=== PATIENT | male | born 2000 | race Asian ===

== ENCOUNTER 2021-09-20 22:09 | Observation (INO) ==
[2021-09-20] MEDS ORDERED: MoRPHine SULFATE 4 MG/ML 1 ML CARP\\VIAL IV PRN (22:30)
[2021-09-20] MEDS ORDERED: ONDANSETRON INJ 2 MG/ML 2 ML VIAL IV STA (22:30)
--- NOTE | 2021-09-20 22:34 | Emergency Department Note ---
History of Present Illness General Chief complaint: Fever Stated complaint: ABDOMINAL PAIN, FEVER 100.4 Time Seen by Provider: 09/20/21 22:21 History of Present Illness Maximum Pain Intensity: 4 This is a 20-year-old male presenting to the emergency department for evaluation of very low abdominal pain. The patient was seen and evaluated in this ER about 36 hours ago where he had blood work and ultrasounds of his abdomen and for the appendix without significant findings. The patient was given Phenergan which seems to be controlling his nausea. He states that over the past 12 hours his pain has shifted to be more in the bilateral lower abdomen. He states that he had a fever of 100.3 F, and now returns to the ER for evaluation. Patient last ate a small amount of food around 5 PM. He feels like he is using the bathroom is normal. No history of abdominal surgery. He rates his current discomfort a 4/10. Home Medications Medication Instructions Recorded Confirmed Type promethazine 25 mg tablet 25 mg PO Q6H PRN nausea and 09/19/21 Rx vomiting #10 tabs Past Med/Surg History Medical History No pertinent past medical history Surgical History No pertinent past surgical history Family History Other No pertinent family history Social History Smoking Status: Never smoker Preferred Language: Welsh Hearing Ability: Normal marital status: Single current occupational status: student Feels Safe at Home: Yes Review of Systems A total of 10 systems reviewed and were otherwise negative Physical Exam Vital Signs Vital Signs - 24 hr 09/20/21 22:14 09/21/21 00:23 09/21/21 01:43 Temperature 37.0 C Temperature Source Temporal Artery Scan Pulse Rate 129 H Pulse Rate [Right] 94 H 60 Pulse Rhythm [Right] Respiratory Rate 18 16 16 Respiratory Effort / Characteristics Non-Labored Spontaneous Non-Labored Spontaneous Respiratory Depth Normal Normal Blood Pressure 131/84 Blood Pressure [Right Arm] 122/83 105/65 Blood Pressure Mean 99 Blood Pressure Mean [Right Arm] 96 78 Blood Pressure Position Sitting Pulse Oximetry 94 96 93 Oxygen Delivery Method Room Air Room Air Room Air Sepsis Recent Fever Within 48 Hours Yes Sepsis New/Unexplained Change in Mental Status N/A Sepsis Action Taken by Nursing No Action Required 09/21/21 02:00 Temperature Temperature Source Pulse Rate Pulse Rate [Right] 108 H Pulse Rhythm [Right] Regular Respiratory Rate 16 Respiratory Effort / Characteristics Respiratory Depth Blood Pressure Blood Pressure [Right Arm] 136/80 Blood Pressure Mean Blood Pressure Mean [Right Arm] 98 Blood Pressure Position Pulse Oximetry 97 Oxygen Delivery Method Room Air Sepsis Recent Fever Within 48 Hours Sepsis New/Unexplained Change in Mental Status Sepsis Action Taken by Nursing VITALS: Vitals are noted on the nurse's note and reviewed by myself. Vital signs stable. GENERAL: Well-developed, well-nourished, male, who is in no acute distress and resting comfortably. Patient is cooperative with the examination. HEAD: Normocephalic atraumatic. HEART: Regular rate and rhythm without murmurs gallops or rubs. LUNGS: Clear to auscultation bilaterally without wheezes, rales or rhonchi. No retractions or accessory muscle use. ABDOMEN: Positive normal bowel sounds x 4. Soft with mild bilateral lower abdominal tenderness. No distinct rebound or guarding. No CVA tenderness. MUSCULOSKELETAL: No muscle atrophy, erythema, or edema noted. Full range of motion in all extremities. NEURO: Patient was alert and oriented to person place and time. CN II through XII grossly intact. Course Administered Medications Morphine Sulfate (Morphine Sulfate 4 Mg/Ml 1 Ml Carp\Vial) 4 mg IV Q30M PRN PRN Reason: Pain Stop: 10/04/21 22:29 Last Admin: 09/20/21 22:39 Dose: 4 mg Documented By: FREYA Discontinued Medications Sodium Chloride (Nss 1000ml) 1,000 mls @ 999 mls/hr IV .Q1H1M ANNIE Stop: 09/20/21 23:45 Last Infusion: 09/20/21 23:50 Dose: 0 mls/hr Documented By: Admin: 09/20/21 22:40 Dose: 999 mls/hr Documented By: FREYA Cefoxitin Sodium (Mefoxin) 2,000 mg in 60 mls @ 100 mls/hr IV NOW STA Stop: 09/21/21 02:19 Last Admin: 09/21/21 01:48 Dose: 100 mls/hr Documented By: FREYA Ioversol (Optiray 320 100ml) 100 ml IV ONCE ONE Stop: 09/21/21 01:02 Last Admin: 09/21/21 01:02 Dose: 93 ml Documented By: DELBERT Ondansetron HCl (Ondansetron Inj 2 Mg/Ml 2 Ml Vial) 4 mg IV NOW STA Stop: 09/20/21 22:31 Last Admin: 09/20/21 22:39 Dose: 4 mg Documented By: FREYA Medical Decision Making Differential Diagnosis Differential diagnosis: Etiologies such as biliary colic, cholecystitis, hepatitis, pancreatitis, cardiac disease, pancreatitis, gastritis, peptic ulcer disease, appendicitis, cystitis, diverticulitis, mesenteric ischemia, inflammatory bowel disease, ileus, bowel obstruction, testicular/adnexal torsion, aortic pathology, ames gles, as well as others were considered Laboratory Data Result diagrams: 09/20/21 22:40 09/20/21 22:40 Lab Results 09/20/21 09/20/21 09/20/21 Range/Units 22:40 22:40 22:40 WBC 10.81 H (4.8-10.8) K/ul RBC 5.06 (4.63-6.08) M/uL Hgb 14.7 (14.0-18.0) g/dl Hct 43.6 (40.1-51.0) % MCV 86.2 (80.0-100.0) fL MCH 29.1 (25.0-34.0) pg MCHC 33.7 (32.0-36.0) g/dL RDW Std Deviation 38.5 (36.4-46.3) fL RDW Coeff of Amarilys 12.2 (11.5-14.5) % Plt Count 219 (130-400) K/uL MPV 9.2 L (9.4-12.4) fL Immature Gran % (Auto) 0.4 % Neut % (Auto) 84.1 % Lymph % (Auto) 6.5 % [place] % (Auto) 8.8 % Eos % (Auto) 0.1 % Baso % (Auto) 0.1 % Neut # (Auto) 9.10 H (1.4-6.5) K/uL Lymph # (Auto) 0.70 L (1.2-3.4) K/uL [place] # (Auto) 0.95 H (0.24-0.82) K/uL Eos # (Auto) 0.01 (0-0.50) K/uL Baso # (Auto) 0.01 (0-0.2) K/uL Immature Gran # (Auto) 0.04 H (0.00-0.02) K/uL Sodium 133 L (136-145) mmol/L Potassium 3.7 (3.5-5.1) mmol/L Chloride 99 (98-107) mmol/L Carbon Dioxide 25 (21-32) mmol/L Anion Gap 9 (3-11) BUN 11 (6-23) mg/dl Creatinine 0.91 (0.6-1.4) mg/dl Est Cr Clr Drug Dosing 127.3 ml/min Est GFR ( Amer) 138.2 ml/min Est GFR (Non-Af Amer) 119.2 ml/min BUN/Creatinine Ratio 12.1 (10-20) Glucose 112 H (70-99(Fasting)) mg/dl Lactate (0.4-2.0) mmol/L Calcium 9.2 (8.5-10.1) mg/dl Total Bilirubin 1.2 H (0.2-1.0) mg/dl AST 18 (13-39) U/L ALT 23 (7-52) U/L Alkaline Phosphatase 58 (34-104) U/L Total Protein 7.8 (6.0-8.3) gm/dl Albumin 4.5 (3.4-5.0) gm/dl Globulin 3.3 (2.5-4.0) gm/dl Albumin/Globulin Ratio 1.4 (0.9-2) Lipase 19 (11-82) U/L Urine Color Urine Appearance (Clear) Urine pH (4.5-7.5) Ur Specific [place] (1.000-1.030) Urine Protein (Negative) Urine Glucose (UA) (Negative) Urine Ketones (Negative) Urine Blood (Negative) Urine Nitrite (Negative) Urine Bilirubin (Negative) Urine Urobilinogen (Negative) Ur Leukocyte Esterase (Negative) Urine WBC (Auto) (0-5) /hpf Urine RBC (Auto) (0-4) /hpf U Hyaline Cast (Auto) (0-5) /lpf U Epithel Cells (Auto) (0-5) /lpf Urine Bacteria (Auto) (Negative) SARS-CoV-2, RNA, NAAT NEGATIVE (NEGATIVE) 09/20/21 09/20/21 Range/Units 22:40 22:56 WBC (4.8-10.8) K/ul RBC (4.63-6.08) M/uL Hgb (14.0-18.0) g/dl Hct (40.1-51.0) % MCV (80.0-100.0) fL MCH (25.0-34.0) pg MCHC (32.0-36.0) g/dL RDW Std Deviation (36.4-46.3) fL RDW Coeff of Amarilys (11.5-14.5) % Plt Count (130-400) K/uL MPV (9.4-12.4) fL Immature Gran % (Auto) % Neut % (Auto) % Lymph % (Auto) % [place] % (Auto) % Eos % (Auto) % Baso % (Auto) % Neut # (Auto) (1.4-6.5) K/uL Lymph # (Auto) (1.2-3.4) K/uL [place] # (Auto) (0.24-0.82) K/uL Eos # (Auto) (0-0.50) K/uL Baso # (Auto) (0-0.2) K/uL Immature Gran # (Auto) (0.00-0.02) K/uL Sodium (136-145) mmol/L Potassium (3.5-5.1) mmol/L Chloride (98-107) mmol/L Carbon Dioxide (21-32) mmol/L Anion Gap (3-11) BUN (6-23) mg/dl Creatinine (0.6-1.4) mg/dl Est Cr Clr Drug Dosing ml/min Est GFR ( Amer) ml/min Est GFR (Non-Af Amer) ml/min BUN/Creatinine Ratio (10-20) Glucose (70-99(Fasting)) mg/dl Lactate 1.2 (0.4-2.0) mmol/L Calcium (8.5-10.1) mg/dl Total Bilirubin (0.2-1.0) mg/dl AST (13-39) U/L ALT (7-52) U/L Alkaline Phosphatase (34-104) U/L Total Protein (6.0-8.3) gm/dl Albumin (3.4-5.0) gm/dl Globulin (2.5-4.0) gm/dl Albumin/Globulin Ratio (0.9-2) Lipase (11-82) U/L Urine Color Yellow Urine Appearance Clear (Clear) Urine pH 6.5 (4.5-7.5) Ur Specific [place] 1.019 (1.000-1.030) Urine Protein Trace H (Negative) Urine Glucose (UA) Negative (Negative) Urine Ketones 1+ H (Negative) Urine Blood Trace H (Negative) Urine Nitrite Negative (Negative) Urine Bilirubin Negative (Negative) Urine Urobilinogen Negative (Negative) Ur Leukocyte Esterase Negative (Negative) Urine WBC (Auto) 1-5 (0-5) /hpf Urine RBC (Auto) 0-4 (0-4) /hpf U Hyaline Cast (Auto) 1-5 (0-5) /lpf U Epithel Cells (Auto) 5-10 H (0-5) /lpf Urine Bacteria (Auto) Negative (Negative) SARS-CoV-2, RNA, NAAT (NEGATIVE) Imaging Data Radiologist's Impression: Preliminary Findings Only See Final Report For Complete Findings CT ABDOMEN & PELVIS With Contrast: Acute appendicitis noted. What may reflect appendicoliths versus oral contrast noted in a dilated appendix measuring up to 16 mm in transverse plane. Residual gas noted in the inflamed appendix. There is reactive thickening of the adj acent sigmoid colon. Radiologist:Dwaine Robles MD [facility] Narrative Physical exam and history were performed. Nursing notes, EMR, and Medication List were personally reviewed. Patient appears to have abdominal pain with fever returning him to the ER. The patient's symptoms are now in the lower abdomen more so than diffuse. IV access was established and labs were obtained. He was hydrated with normal saline and given IV morphine and IV Zofran for comfort. Patient was prepped for contrast CT. Patient's blood work is as above and was reviewed. His white blood cell count improved from 12 to 10.8. He does not have significant anemia, bandemia, or gross electrolyte imbalance. Lipase and transaminases are not diagnostic. Urine is without significant acute findings. COVID is negative. CT scan is as above and was reviewed by myself and radiology. Patient does appear to have acute appendicitis on imaging. Patient was kept n.p.o. and given Mefoxin. He was updated on his status. I did reach out to the on-call surgical team, and spoke with Dr. Mayorga, who will evaluate the patient. Please see Dr. Mayorga dictation for further patient course, plan, disposition. The chart was completed utilizing [employer] Speech Voice Recognition Software. Grammatical errors, random word insertions, pronoun errors, and incomplete sentences are an occasional consequence of this system due to software limitations, ambient noise, and hardware issues. Any formal questions or concerns about the content, text, or information contained within the body of this dictation should be directly addressed to the provider for clarification. . Impression & Plan Acute appendicitis Discharge Plan Visit Data Chief Complaint: Fever Stated Complaint: ABDOMINAL PAIN, FEVER 100.4 ED Provider: Yevgeniy Damico ED Midlevel Provider: Kirill López Discharge Problem: Acute appendicitis
[2021-09-20] MEDS ORDERED: SODIUM CHLORIDE 0.9% 1000ML 1,000 ML IV SCH (22:45)
[2021-09-20 23:03] LABS: Basophils # (auto) 0.01 K/uL (0-0.2); Basophils % (auto) 0.1 %; Eosinophils # (auto) 0.01 K/uL (0-0.50); Eosinophils % (auto) 0.1 %; Hematocrit (blood only) 43.6 % (40.1-51.0); Hemoglobin 14.7 g/dl (14.0-18.0); Immature Granulocytes # (auto) 0.04 K/uL (0.00-0.02); Immature Granulocytes % (auto) 0.4 %; Lymphocytes % (auto) 6.5 %; Mean Corpuscular Hemoglobin 29.1 pg (25.0-34.0); Mean Corpuscular Hgb Conc 33.7 g/dL (32.0-36.0); Mean Corpuscular Volume 86.2 fL (80.0-100.0); Mean Platelet Volume 9.2 fL (9.4-12.4); Monocytes # (auto) 0.95 K/uL (0.24-0.82); Monocytes % (auto) 8.8 %; Neutrophils % (auto) 84.1 %; Platelet Count 219 K/uL (130-400); RDW Coefficient of Variation 12.2 % (11.5-14.5); RDW Standard Deviation 38.5 fL (36.4-46.3); Red Blood Count 5.06 M/uL (4.63-6.08); White Blood Count 10.81 K/ul (4.8-10.8)
[2021-09-20 23:12] LABS: Appearance Urine Clear (Clear); Bacteria Urine Automated Negative (Negative); Bilirubin Urine Negative (Negative); Blood Urine Trace (Negative); Color Urine Yellow; Glucose Urine UA Negative (Negative); Ketones Urine 1+ (Negative); Leukocyte Esterase Urine Negative (Negative); Nitrite Urine Negative (Negative); Protein Urine Trace (Negative); RBC Urine Automated 0-4 /hpf (0-4); Specific Gravity Urine 1.019 (1.000-1.030); Urobilinogen Urine Negative (Negative); pH Urine 6.5 (4.5-7.5)
[2021-09-20 23:23] LABS: Albumin Globulin Ratio 1.4 (0.9-2); Albumin Level 4.5 gm/dl (3.4-5.0); BUN Creatinine Ratio 12.1 (10-20); Bilirubin,Total 1.2 mg/dl (0.2-1.0); Calcium 9.2 mg/dl (8.5-10.1); Creatinine Clr Calc Pharmacy 127.3 ml/min; Est GFR (African American) 138.2 ml/min; Est GFR (Non-African American) 119.2 ml/min; Globulin 3.3 gm/dl (2.5-4.0); Potassium 3.7 mmol/L (3.5-5.1); Total Protein 7.8 gm/dl (6.0-8.3)
[2021-09-21] MEDS ORDERED: OPTIRAY 320 100ml IV ONE (01:01)
[2021-09-21] MEDS ORDERED: cefOXitin 2,000 MG/60 ML BAG IV STA (01:44)
--- NOTE | 2021-09-21 02:22 | Communication Note ---
Date of Service: September 21, 2021 20 y/o male with uncomplicated acute appendicitis, lab and ct personally reviewed, will admit to obs, npo, iv abx, plan for lap appendectomy time and space available later today. orders placed.
[2021-09-21] MEDS ORDERED: ONDANSETRON INJ 2 MG/ML 2 ML VIAL IV PRN ×2 (03:27→10:18)
[2021-09-21] MEDS ORDERED: MoRPHine SULFATE 4 MG/ML 1 ML CARP\\VIAL IV PRN (03:27)
[2021-09-21] MEDS ORDERED: diphenhydrAMINE 50 MG/ML VIAL IV PRN (03:27)
[2021-09-21] MEDS ORDERED: MoRPHine SULFATE 2 MG/ML CARP IV PRN (03:27)
[2021-09-21] MEDS: LACTATED RINGER'S 1,000 ML IV SCH ×3 (03:41→14:57)
[2021-09-21] MEDS: ACETAMINOPHEN 1,000 MG/100 ML VIAL IV SCH ×3 (03:46→21:32)
--- NOTE | 2021-09-21 07:13 | History & Physical Report ---
Date of Service September 21, 2021 Assessment & Plan (1) Acute appendicitis: Plan: This is a 20y M with no significant PMH who presented to the [facility] ED on 09/20/21 with complaints of abdominal pain that started Tuesday.He was actually in the ER on Tuesday and a appendix US was obtained and did not visualize the appendix but there were no secondary findings suggestive of acute appendicitis. Today in the ED a CT a/p was performed that revealed findings concerning for acute appendicitis with a likely microperforation at the distal appendix, no periappendiceal abscess at this time. There is also a few proximal appendicolith's measuring up to 1 cm. WBC 10.8 (12.4). Vital signs are stable. Low grade temp this AM. On exam abdomen is soft with tenderness to palpation in the RLQ. He has been NPO with IVF and started on pre-op abx. Exam and clinical findings consistent with acute appendicitis. We will proceed with laparoscopic appendectomy in the OR today with Dr. Mayorga. Admission and Anticipated Discharge Date Admission Date: September 21, 2021 History of Present Illness Primary Care Provider: [facility] This is a 20y M with no significant PMH who presents to the [facility] ED on 09/20/21 with complaints of abdominal pain. He states the pain started in his stomach on Tuesday around 2:30pm. Then Tuesday into Tuesday it moved into his lower abdomen. He developed nausea/vomiting on Tuesday. The pain has been constant and he rates it a 7/10 at its worst. On my interview it's currently a 3/10. He developed fevers yesterday evening. He was actually in the ER on Tuesday and a appendix US was obtained and did not visualize the appendix but there were no secondary findings suggestive of acute appendicitis. He again reported to the ER last night due to ongoing symptoms. In the ED a CT a/p was performed that revealed findings concerning for acute appendicitis with a likely microperforation at the distal appendix, no periappendiceal abscess at this time. There is also a few proximal appendicolith's measuring up to 1 cm. Patient denies any chills, change in bowel habits, CP/SOB, bloating. No prior abdominal surgical history. Allergies Allergy/AdvReac Type Severity Reaction Status Date / Time No Known Allergies Allergy Unverified 09/21/21 03:27 Home Medications Medication Instructions Recorded Confirmed Type promethazine 25 mg tablet 25 mg PO Q6H PRN nausea and 09/19/21 Rx vomiting #10 tabs Past Med/Surg History Medical History No pertinent past medical history Surgical History No pertinent past surgical history Family History Other No pertinent family history Social History Smoking Status: Never smoker Hx Alcohol Use: Yes Alcohol type: beer Hx Substance Use: No Preferred Language: Mandarin Cymraes Communication Ability: Effective Hearing Ability: Normal [employer] Specialist Required: No Beliefs That Will Affect Care: None marital status: Single Current Living Situation: Other Current Living Situation Comment: lives with roommates current occupational status: student Other Information That Helps Us Care for You: No Feels Safe at Home: Yes Safety Concerns: Feels Safe At This Time Assistive Devices: Glasses Review of Systems Constitutional: + fever; no chills Respiratory: no dyspnea Cardiovascular: no chest pain Gastrointestinal: + abdominal pain and + nausea; no bloating and no change in bowel habits Physical Exam Physical Exam: awake/alert, no acute distress Respiratory: normal respiratory effort Gastrointestinal (Abdomen): Inspection/Auscultation: + abdomen distended (mild) Percussion/Palpation: + abdomen tender (ttp in lower abdomen R>L) and abdomen soft Results & Data Results & Data ([facility]) Vital Signs (Past 12 Hours) Vital Signs Temp Pulse Pulse Resp BP BP BP 09/21/21 06:02 37.2 C 100 H 17 120/69 09/21/21 03:20 37.8 C H 120 H 18 102/62 09/21/21 02:00 108 H 16 136/80 09/21/21 01:43 60 16 105/65 09/21/21 00:23 94 H 16 122/83 09/20/21 22:14 37.0 C 129 H 18 131/84 Pulse Ox O2 Del Method 09/21/21 06:02 97 Room Air 09/21/21 03:20 96 Room Air 09/21/21 02:00 97 Room Air 09/21/21 01:43 93 Room Air 09/21/21 00:23 96 Room Air 09/20/21 22:14 94 Room Air Diagnostic Findings ABDOMEN AND PELVIS CT WITH IV AND ORAL CONTRAST CT DOSE: 306.10 mGy.cm HISTORY: Low abd pain. Fever. TECHNIQUE: Multiaxial CT images of the abdomen and pelvis were performed following the use of intravenous and oral contrast. A dose lowering technique was utilized adhering to the principles of ALARA. COMPARISON STUDY: None. FINDINGS: The lung bases are clear. No fractures within the visualized osseous structures. The liver, gallbladder, pancreas, spleen adrenal glands and kidneys are unremarkable. No hydronephrosis. No retroperitoneal lymphadenopathy. Normal caliber abdominal aorta. The bladder is unremarkable. No evidence for bowel obstruction. The appendix is distended and thick-walled measuring up to 12 mm in diameter. The proximal appendix contains 2 appendicoliths measuring up to 1 cm. There is likely microperforation of the distal appendix with periappendiceal fat stranding. No definite abscess at this time. IMPRESSION: 1. Acute appendicitis. There is likely microperforation at the distal appendix. No periappendiceal abscess at this time. 2. There are few proximal appendicoliths measuring up to 1 cm. 3. Mild thickening of the adjacent sigmoid colon is likely reactive to the appendicitis. ACT 112: Negative or not required by law. Electronically signed by: Fernando Johnson M.D. 09/21/2021 7:36 AM Code Status & VTE Plan VTE Prophylaxis Plan VTE Prophylaxis will be ordered: Yes Supervising Physician Co-Signing Physician Notes Patient seen and examined, labs and imaging reviewed, agree with above. 20 y/o male with acute appendicitis, questionable microperforation on CT. AFVSS, abd soft, ttp in RLQ. wbc 10, CT personally reviewed, agree with appendicitis. No obvious perforation. Plan for laparoscopic appendectomy risks discussed to include bleeding, infection, conversion to open, need for future or more extensive surgery, abscess, damage to surrounding structures, and risks of anesthesia. on abx possible d/c this afternoon PG Care Time/CCT Total # of Minutes Spent Total Time Spent with Patient: Total time spent is greater than 50% in coordination of care (as documented) at patient's floor/unit and/or counseling patient: Coding Level of Care Code 84672 Initial Inpt Care Lvl 2 Diagnoses Acute appendicitis K35.80
--- NOTE | 2021-09-21 07:38 | CT Scan Report ---
ABDOMEN AND PELVIS CT WITH IV AND ORAL CONTRAST CT DOSE: 306.10 mGy.cm HISTORY: Low abd pain. Fever. TECHNIQUE: Multiaxial CT images of the abdomen and pelvis were performed following the use of intrave nous and oral contrast. A dose lowering technique was utilized adhering to the principles of ALARA. COMPARISON STUDY: None. FINDINGS: The lung bases are clear. No fractures within the visualized osseous structures. The liver, gallbladder, pancreas, spleen adrenal glands and kidneys are unremarkable. No hydronephrosis. No ret roperitoneal lymphadenopathy. Normal caliber abdominal aorta. The bladder is unremarkable. No evidenc e for bowel obstruction. The appendix is distended and thick-walled measuring up to 12 mm in diameter . The proximal appendix contains 2 appendicoliths measuring up to 1 cm. There is likely microperforat ion of the distal appendix with periappendiceal fat stranding. No definite abscess at this time. IMPRESSION: 1. Acute appendicitis. There is likely microperforation at the distal appendix. No periappendiceal ab scess at this time. 2. There are few proximal appendicoliths measuring up to 1 cm. 3. Mild thickening of the adjacent sigmoid colon is likely reactive to the appendicitis. ACT 112: Negative or not required by law. Electronically signed by: Fernando Johnson M.D. 09/21/2021 7:36 AM
[2021-09-21] MEDS: cefOXitin 2,000 MG in DEXTROSE 5% 50 ML IV SCH ×2 (10:04→17:04)
[2021-09-21] MEDS ORDERED: ATROPINE SULFATE 0.1 MG/ML 10ML SYR IV PRN (10:18)
[2021-09-21] MEDS ORDERED: fentaNYL citrate 100 MCG/2 ML VIAL IV PRN (10:18)
[2021-09-21] MEDS ORDERED: PHENYLEPHRINE 100MCG/ML 5ML SYR IV PRN (10:18)
[2021-09-21] MEDS ORDERED: MEPERIDINE HCL 25 MG/ML CARP/VIAL IV PRN (10:18)
[2021-09-21] MEDS ORDERED: HYDROmorphone INJ 1 MG/ML SYRINGE IV PRN (10:18)
[2021-09-21] MEDS ORDERED: LABETALOL HCL IV 5 MG/ML 20ML IV PRN (10:18)
[2021-09-21] MEDS ORDERED: ePHEDrine sulfate 50 MG/ML AMP IV PRN (10:18)
--- NOTE | 2021-09-21 10:18 | Anesthesiology Consultation ---
Date of Service September 21, 2021 Assessment & Plan (1) Encounter for pre-operative examination: Chart Review Chart Review: Acceptable Risk for Surgery and Patient NOT seen in Pre Admission Testing Consults Requested none History Surgery Operation Date: 09/21/21 07:00 Proposed Procedures p Laparoscopic Appendectomy - Rajesh Mayorga DO, FACS Height/Weight Height: 5 ft 9 in Weight: 79.379 kg Allergies Allergy/AdvReac Type Severity Reaction Status Date / Time No Known Allergies Allergy Unverified 09/21/21 03:27 Medications Home Medications Medication Instructions Recorded Confirmed Last Taken promethazine 25 mg tablet 25 mg PO Q6H PRN nausea and 09/19/21 Unknown vomiting #10 tabs Active Medications Generic Name Dose Route Start Last Admin Trade Name Freq PRN Reason Stop Dose Admin Lactated Ringer's 1,000 mls @ 125 mls/hr 09/21/21 03:27 09/21/21 10:05 Lr IV 10/21/21 03:26 0 mls/hr .Q8H ANNIE Infusion Acetaminophen 1,000 mg in 100 mls @ 400 mls/hr 09/21/21 04:00 09/21/21 04:02 Ofirmev IV 09/24/21 03:59 Infused Q8 ANNIE Infusion Protocol Cefoxitin Sodium 2,000 mg/ 60 mls @ 100 mls/hr 09/21/21 10:00 09/21/21 10:04 Dextrose IV 10/01/21 09:59 100 mls/hr Q8H ANNIE Administration NPO Date Last Intake of Fluids: 09/20/21 Time Last Intake of Fluids: 22:20 Date Last Intake of Solids: 09/20/21 Time Last Intake of Solids: 17:30 Past Medical History Medical History No pertinent past medical history Past Family History Family History Other No pertinent family history Past Surgical History Surgical History No pertinent past surgical history Social History Smoking Status: Never smoker Hx Alcohol Use: Yes Alcohol type: beer alcohol intake frequency: 0-2 drinks per day Hx Substance Use: No substance use type: does not use Physical Exam Vital Signs Last Vital Signs Temp 36.8 C 09/21/21 08:03 Pulse 93 H 09/21/21 08:03 Resp 16 09/21/21 08:03 BP 115/72 09/21/21 08:03 Pulse Ox 97 09/21/21 08:03 O2 Del Method 09/21/21 08:03 Testing Laboratory Results 09/20/21 22:40 09/20/21 22:40 Urine Color Yellow 09/20/21 22:40 Urine Appearance Clear (Clear) 09/20/21 22:40 Urine pH 6.5 (4.5-7.5) 09/20/21 22:40 Ur Specific [place] 1.019 (1.000-1.030) 09/20/21 22:40 Urine Protein Trace (Negative) H 09/20/21 22:40 Urine Glucose (UA) Negative (Negative) 09/20/21 22:40 Urine Ketones 1+ (Negative) H 09/20/21 22:40 Urine Nitrite Negative (Negative) 09/20/21 22:40 Ur Leukocyte Esterase Negative (Negative) 09/20/21 22:40 Urine WBC (Auto) 1-5 /hpf (0-5) 09/20/21 22:40 Urine RBC (Auto) 0-4 /hpf (0-4) 09/20/21 22:40 U Hyaline Cast (Auto) 1-5 /lpf (0-5) 09/20/21 22:40 U Epithel Cells (Auto) 5-10 /lpf (0-5) H 09/20/21 22:40 Urine Bacteria (Auto) Negative (Negative) 09/20/21 22:40
[2021-09-21] MEDS ORDERED: PROPOFOL IV EMULSION 10 MG/ML 20 ML VIAL IV ONE (11:59)
[2021-09-21] MEDS ORDERED: MIDAZOLAM HCL 1 MG/ML 2ML VIAL ONE (11:59)
[2021-09-21] MEDS ORDERED: ROCURONIUM BROMIDE 10 MG/ML 5 ML VIAL IV ONE (11:59)
[2021-09-21] MEDS ORDERED: fentaNYL citrate 100 MCG/2 ML VIAL ONE ×2 (11:59→12:39)
[2021-09-21] MEDS ORDERED: BUPIVACAINE 0.5 % 5 MG/1 ML MPF 30ML VIAL ONE (12:03)
[2021-09-21] MEDS ORDERED: LIDOCAINE 2% 20 MG/ML 5 ML SYR IV ONE (12:21)
[2021-09-21] MEDS ORDERED: DEXAMETHASONE SOD INJ 4 MG/ML VIAL ONE (12:26)
[2021-09-21] MEDS ORDERED: ONDANSETRON INJ 2 MG/ML 2 ML VIAL ONE (12:26)
[2021-09-21] MEDS ORDERED: ESMOLOL HCL INJ 10 MG/ML 10ML VIAL IV ONE (12:38)
[2021-09-21] MEDS ORDERED: GLYCOPYRROLATE 0.2 MG/ML VIAL ONE (13:04)
[2021-09-21] MEDS ORDERED: NEOSTIGMINE METHYLSULFATE 1 MG/ML 10ML VIAL ONE (13:04)
--- NOTE | 2021-09-21 13:12 | Operative Report ---
PG Post Operative Report Pre & Post Diagnosis Operation Date: 09/21/21 07:00 Pre-Op Diagnosis: ACUTE APPENDICITIS Post-Op Diagnosis: ACUTE APPENDICITIS I identified the patient and participated in the time-out.: Yes Procedure Operation Date: 09/21/21 07:00 Actual Procedures p Laparoscopic Appendectomy(Not Applicable) - Rajesh Mayorga DO, FACS Surgeon Rajesh Mayorga DO, FACS Nipping Machine Operator luis Cruz Estimated Blood Loss 5 Findings Consistent with Post-Op Diagnosis Acute gangrenous appendicitis, no evidence of perforation. Specimens Appendix Anesthesia Type General Complications none Disposition Accompanied Patient To Recovery: No Disposition: Recovery Room Indications 20-year-old male presented with signs and symptoms of appendicitis confirmed by CT scan. Plan for laparoscopic appendectomy. The risks of the procedure were discussed, all questions were answered, and the patient agreed to proceed with surgery as planned. Description of Procedure The patient was properly identified, consented, and taken to the operating room where he was placed in the supine position. General endotracheal anesthesia was induced. SCDs and a safety belt were placed. Preoperative antibiotics were administered. A Campbell catheter was not placed. The patient's abdomen was prepped and draped in the standard sterile fashion. Surgical timeout was performed and all parties were in agreement that this was the correct patient and procedure to be performed and we continued as planned. A curvilinear infraumbilical incision was made with electrocautery and deepened down to the fascia with blunt dissection. The base of the umbilicus was grasped with a Maggie and elevated towards the ceiling. An incision was made in the midline fascia with a knife and entry into the peritoneum was confirmed. Stay suture of 0 Vicryl was placed and a Grossman trocar was inserted. The abdomen was insufflated with carbon dioxide which the patient tolerated without incident. The laparoscope was inserted and no damage from initial trocar placement was noted, no gross abnormalities were noted within the 4 quadrants the abdomen. 5 mm ports were then placed in the left lower quadrant with care not to damage the epigastric vessels, and in the suprapubic midline with care not to damage the bladder. The patient was placed in Trendelenburg position and rotated towards the left. The small bowel was swept away from the right lower quadrant. The cecum was grasped with an atraumatic grasper exposing the appendix. There was some fibrinous adhesions in the right lower quadrant which were freed with blunt dissection. The appendix was mobilized and was significantly inflamed and there was no evidence of perforation, but it did appear to be gangrenous. There was reactive and turbid fluid in the pelvis. A window was created between the base of the appendix and the mesoappendix. A echevarria loaded endoscopic stapler was then used to divide the appendix at its base. The harmonic scalpel was then used to divide the mesoappendix. Hemostasis was good. The appendix was placed in an Endo Catch bag and removed through the umbilical port site. The right lower quadrant and pelvis was irrigated and hemostasis was found to be good. 5 mm trochars were removed under direct visualization and the abdomen was allowed to collapse. The umbilical port site fascia was closed with 0 Vicryl suture. The wound was irrigated, and the skin of all ports was closed with 4-0 Monocryl subcuticular sutures. Dermabond was placed over the wounds. The patient was extubated in the operating room and taken to the PACU where he recovered without apparent incident. All sponge, instrument and needle counts were correct at the conclusion of the procedure. The patient tolerated the procedure well. The physician's general office assistant was present and scrubbed for the entirety of the case. She was critical positioning the patient, prepping and draping, retraction and exposure, driving the laparoscope, Lausier the incisions, placement of the dressings. I attest to the content of the Intraoperative Record and any orders documented therein. Any exceptions are noted below.
--- NOTE | 2021-09-21 14:04 | Anesthesiology Progress Note ---
Date of Service September 21, 2021 Anesthesia Post Procedure Vital Signs Vital Signs: Temp Pulse Pulse Pulse Resp BP BP 09/21/21 13:55 80 11 L 126/82 09/21/21 13:45 81 19 124/85 09/21/21 13:35 36.5 C 71 13 126/83 09/21/21 13:26 36.5 C 83 15 129/90 09/21/21 10:50 37.2 C 122 H 18 114/90 09/21/21 08:03 36.8 C 93 H 16 115/72 09/21/21 06:02 37.2 C 100 H 17 120/69 09/21/21 03:20 37.8 C H 120 H 18 102/62 09/21/21 02:00 108 H 16 09/21/21 01:43 60 16 09/21/21 00:23 94 H 16 09/20/21 22:14 37.0 C 129 H 18 131/84 BP Pulse Ox O2 Del Method O2 Flow Rate 09/21/21 13:55 92 Room Air 09/21/21 13:45 99 Oxymask 2 09/21/21 13:35 100 Oxymask 3 09/21/21 13:26 100 Oxymask 5 09/21/21 10:50 99 Room Air 09/21/21 08:03 97 Room Air 09/21/21 06:02 97 Room Air 09/21/21 03:20 96 Room Air 09/21/21 02:00 136/80 97 Room Air 09/21/21 01:43 105/65 93 Room Air 09/21/21 00:23 122/83 96 Room Air 09/20/21 22:14 94 Room Air Pain Intensity Abdomen: Pain Intensity: 3 Transfer of Care Handoff Completed per policy Notes Mental Status: alert / awake / arousable Patient Amnestic to Procedure: Yes Nausea / Vomiting: adequately controlled Pain: adequately controlled Airway Patency, RR, SpO2: stable & adequate BP & HR: stable & adequate Hydration State: stable & adequate Anesthetic Complications: no major complications apparent and Pt Satisfied with anesthetic care
[2021-09-21] MEDS ORDERED: oxyCODONE HCL IR 5 MG TAB (IMMEDIATE RELEASE) PO PRN ×4 (14:30→14:43)
[2021-09-22] MEDS: cefOXitin 2,000 MG in DEXTROSE 5% 50 ML IV SCH ×2 (02:18→10:45)
[2021-09-22] MEDS: LACTATED RINGER'S 1,000 ML IV SCH (02:21)
[2021-09-22] MEDS: ACETAMINOPHEN 1,000 MG/100 ML VIAL IV SCH (05:23)
[2021-09-22 06:57] LABS: Basophils # (auto) 0.01 K/uL (0-0.2); Basophils % (auto) 0.1 %; Eosinophils # (auto) 0.01 K/uL (0-0.50); Eosinophils % (auto) 0.1 %; Hematocrit (blood only) 40.9 % (40.1-51.0); Hemoglobin 13.7 g/dl (14.0-18.0); Immature Granulocytes # (auto) 0.04 K/uL (0.00-0.02); Immature Granulocytes % (auto) 0.4 %; Lymphocytes # (auto) 1.18 K/uL (1.2-3.4); Mean Corpuscular Hemoglobin 28.8 pg (25.0-34.0); Mean Corpuscular Hgb Conc 33.5 g/dL (32.0-36.0); Mean Corpuscular Volume 86.1 fL (80.0-100.0); Monocytes # (auto) 1.11 K/uL (0.24-0.82); Monocytes % (auto) 12.2 %; Neutrophils # (auto) 6.72 K/uL (1.4-6.5); Neutrophils % (auto) 74.2 %; Platelet Count 213 K/uL (130-400); RDW Coefficient of Variation 11.9 % (11.5-14.5); RDW Standard Deviation 37.8 fL (36.4-46.3); Red Blood Count 4.75 M/uL (4.63-6.08); White Blood Count 9.07 K/ul (4.8-10.8)
[2021-09-22 07:18] LABS: Anion Gap 7 (3-11); BUN Creatinine Ratio 14.1 (10-20); Blood Urea Nitrogen 10 mg/dl (6-23); Carbon Dioxide 27 mmol/L (21-32); Chloride 103 mmol/L (98-107); Creatinine Clr Calc Pharmacy 163.2 ml/min; Est GFR (African American) > 150.0 ml/min; Est GFR (Non-African American) 133.2 ml/min; Glucose 106 mg/dl (70-99(Fasting)); Sodium 137 mmol/L (136-145)
--- NOTE | 2021-09-22 09:32 | Surgery Progress Note ---
Date of Service September 22, 2021 Assessment & Plan (1) Acute appendicitis: Plan: POD#1 laparoscopic appendectomy for gangrenous appendicitis WBC 9. Vitals stable. Pt afebrile He is feeling well. Tolerating diet. Pain controlled. Incisions c/d/i Plan on discharging to home today Will send out on on some po abx given intraop findings Dispo instructions reviewed. F/u in clinic with Dr. Mayorga in 1-2 weeks Admission and Anticipated Discharge Date Admission Date: September 21, 2021 Subjective Patient is doing well. Tolerating a regular diet. Pain controlled with Tylenol. Denies nausea/vomiting. Physical Exam Physical Exam: awake/alert, no distress Gastrointestinal (Abdomen): Inspection/Auscultation: + abdominal surgical incision (c/d/i no signs of infection. skin glue over incisions ); abdomen not distended Percussion/Palpation: abdomen soft; abdomen nontender Results & Data ([facility]) Vital Signs (Past 12 Hours) Vital Signs Temp Pulse Resp BP Pulse Ox O2 Del Method 09/22/21 07:33 36.6 C 75 16 109/70 09/22/21 02:20 36.8 C 60 14 119/75 97 Room Air 09/21/21 22:02 37.0 C 78 16 106/68 97 Room Air PG Care Time/CCT Total # of Minutes Spent Total Time Spent with Patient: Total time spent is greater than 50% in coordination of care (as documented) at patient's floor/unit and/or counseling patient: Coding Level of Care Code None Diagnoses Acute appendicitis K35.80
--- NOTE | 2021-09-22 09:43 | Discharge Summary ---
Date of Service September 22, 2021 Admission HPI Per Admitting Provider This is a 20y M with no significant PMH who presents to the [facility] ED on 09/20/21 with complaints of abdominal pain. He states the pain started in his stomach on Tuesday around 2:30pm. Then Tuesday into Tuesday it moved into his lower abdomen. He developed nausea/vomiting on Tuesday. The pain has been constant and he rates it a 7/10 at its worst. On my interview it's currently a 3/10. He developed fevers yesterday evening. He was actually in the ER on Tuesday and a appendix US was obtained and did not visualize the appendix but there were no secondary findings suggestive of acute appendicitis. He again reported to the ER last night due to ongoing symptoms. In the ED a CT a/p was performed that revealed findings concerning for acute appendicitis with a likely microperforation at the distal appendix, no periappendiceal abscess at this time. There is also a few proximal appendicolith's measuring up to 1 cm. Patient denies any chills, change in bowel habits, CP/SOB, bloating. No prior abdominal surgical history. Principal Diagnosis acute appendictis Discharge Exam awake/alert, no distress Respiratory normal respiratory effort Gastrointestinal (Abdomen) Inspection/Auscultation: + abdominal surgical incision (c/d/i no signs of infection. skin glue over incisions ); abdomen not distended Percussion/Palpation: abdomen soft; abdomen nontender Discharge Data Allergies Allergy/AdvReac Type Severity Reaction Status Date / Time No Known Allergies Allergy Unverified 09/21/21 03:27 Procedures Performed Operation Date: 09/21/21 07:00 Actual Procedures p Laparoscopic Appendectomy(Not Applicable) - Rajesh Mayorga DO, FACS Ordered Studies 09/20/21 22:30 CT abd pelvis oral and IV con Urgent Hospital Course (1) Acute appendicitis: This is a 20yM who presented to the [facility] ED on 09/21/21 with abdominal pain. Workup in the ED showed a WBC of 10.[address] a/p concerning for acute appendicitis. The patient was tender to palpation in the RLQ. Patient made NPO with IVF, started on abx, and was booked for the OR. On 09/21 the patient went to the OR with Dr. Mayorga for a laparoscopic appendectomy for gangrenous caden endicitis. The patient tolerated the procedure well, see operative report for full details. Post operatively the patient's diet was advanced, pain managed on prn meds, and incisions clean/dry/intact. On POD#1 the patient was deemed stable for discharge to home. He was given a 5 day course of Augmentin to complete at home given intraop findings. He was instructed to follow up in clinic within 1-2 weeks for check up. Total Time Total Time Spent Total Time Spent (In Minutes): 10 Discharge Plan Discharge Items Patient Disposition: Home - Self-Care Reason For Visit: APPENDICITIS Discharge Diagnosis: Appendectomy Activity: As commented below Lifting: No more than 10 pounds Bathing Comment: OK to shower Exercise/Sports: Wait until after follow-up appointment Driving/Machine Use: When pain free Non-emergency contact: Surgeon Call non-emergency contact if: you have any medication questions, your pain is not controlled, you have a fever, your temperature is above 101.5 and your wound has increased redness Follow-up/Referrals: Rajesh Mayorga, BLANCA HUGGINS [Physician] - (Please call to make an appt in 2 weeks) [facility] [Primary Care Provider] - Diet: Regular Addtl Attending Provider Instructions: You may purchase Tylenol and/or Ibuprofen over the counter if needed for post operative pain control. -Tylenol 650mg orally every 4-6 hours, as needed for pain. Do not exceed >3grams of Acetaminophen within a 24hour time period -Ibuprofen 200mg-600mg orally every 6-8 hours, as needed for pain over the next couple of days. Take with food. Please complete the full course of antibiotic prescribed to you Pending Studies at Discharge: No Stand-Alone Forms[facility] C[facility] Medications and DC Order Prescriptions: New amoxicillin-pot clavulanate 875-125 mg tablet 1 tab PO BID Qty: 10 0RF Continued promethazine 25 mg tablet 25 mg PO Q6H PRN (Reason: nausea and vomiting) Qty: 10 0RF Discharge Orders: Discharge Order (Routine); Ordered 09/22/21 Ordered By: Yasmin Cruz Admission Data Admit Date/Time: 09/21/21 02:20 Attending Provider: Rajesh Mayorga Admit Provider: Rajesh Mayorga Primary Care Provider: [facility] Coding Level of Care Code D/C DAY MANAGEMENT <30 MINS Diagnoses Acute appendicitis K35.80
== END 2021-09-22 13:28 | disposition home or self-care (01) ==
LOC: ED 22:09 → 3W 22:09